=== PATIENT | female | born 1945 | race Caucasian/White ===

== ENCOUNTER → 2017-06-09 | Outpatient (CLI) | payer OTHER, BC ==
[~2017-06-09] MED LIST: FISHOIL OR; FROVA2.5 MG OR; NORCO 7.5-3251 EACH PO; THERA-M CAPLET1 EACH OR; TOPAMAX 25 MG T25 M1 OR; VITAMIN C + RO500 MG OR; VITAMIN D1000 UNI1 OR; ZOFRAN4 MG PO; ZYRTEC10 M2 OR
== END ==
LOC: RAD 13:42
DX: Z12.31 Encounter for screening mammogram for malignant neoplasm of breast (principal)

== ENCOUNTER → 2018-06-10 | Outpatient (CLI) | payer OTHER, BC | LOC: RAD 11:04 | DX: Z12.31 Encounter for screening mammogram for malignant neoplasm of breast (principal) ==

== ENCOUNTER → 2019-06-09 | Outpatient (CLI) | payer OTHER, BC | LOC: RAD 14:37 | DX: Z12.31 Encounter for screening mammogram for malignant neoplasm of breast (principal) ==

== ENCOUNTER → 2020-06-24 | Outpatient (CLI) | payer OTHER, BC | LOC: BC 10:33 | PROVIDERS: ATTEND Obstetrics & Gynecology | DX: Z12.31 Encounter for screening mammogram for malignant neoplasm of breast (principal) ==

== ENCOUNTER → 2021-07-08 | Outpatient (CLI) | payer OTHER, BC | LOC: BC 10:44 | PROVIDERS: ATTEND Obstetrics & Gynecology | DX: Z12.31 Encounter for screening mammogram for malignant neoplasm of breast (principal); N64.89 Other specified disorders of breast ==

== ENCOUNTER → 2021-07-14 | Outpatient (CLI) | payer OTHER, BC | LOC: BC 10:34 | PROVIDERS: ATTEND Obstetrics & Gynecology | DX: N63.20 Unspecified lump in the left breast, unspecified quadrant (principal) ==